=== PATIENT | male | born 1980 | race Caucasian/White ===

== ENCOUNTER 2016-10-11 10:37 | Emergency (ER) | payer MEDICARE, MEDICAID, OTHER ==
[~2016-10-11] VITALS: Ht 170.2 cm; Wt 87.0 kg
[2016-10-11] MEDS ORDERED: HYDR10SY11 PO (11:05)
[2016-10-11] MEDS ORDERED: OLAN5TAB26 PO (11:05)
[2016-10-11] MEDS ORDERED: ZIPR20CA2 PO (11:05)
[2016-10-11] MEDS ORDERED: BENZ0.5T3 PO (11:05)
[2016-10-11 12:49] LABS: BASOPHILS % 0.4 % (0.0-2.0); EOSINOPHILS % 0.1 % (0.0-5.0); HEMATOCRIT. 41.2 % (42.0-52.0); HEMOGLOBIN. 14.5 g/dL (14.0-18.0); LYMPHOCYTES % 13.5 % (20.0-50.0); MEAN CORPUSCULAR HEMOGLOBIN 30.5 pg (28.0-32.0); MEAN CORPUSCULAR HGB CONC 35.1 g/dL (31.0-37.0); MEAN CORPUSCULAR VOLUME 87.1 fL (80.0-94.0); MONOCYTES % 4.2 % (2.0-8.0); NEUTROPHILS % 81.8 % (40.0-76.0); PLATELET 234 x1000/uL (130-400); RED BLOOD CELL COUNT 4.74 mill/uL (4.7-6.1); RED CELL DISTRIBUTION WIDTH 13.9 % (11.6-14.6); WHITE BLOOD COUNT 8.8 x1000/uL (4.5-11.0)
[2016-10-11 12:59] LABS: CHLORIDE 102 mEq/L (98-107); INDEX HEMOLYSI 1 (1-3); INDEX ICTERIC 1 (1-4); INDEX LIPEMIC 1 (1-3)
[2016-10-11 13:06] LABS: ACETAMINOPHEN < 2 ug/mL (10-30); ALANINE AMINOTRANSFERASE 21 IU/L (13-61); ALBUMIN 4.1 g/dL (3.4-5.0); ANION GAP 9; CALCIUM 9.1 mg/dL (8.5-10.1); CARBON DIOXIDE 31 mEq/L (21-32); ETHANOL BLOOD < 10 mg/dL; UREA NITROGEN BLOOD 9 mg/dL (7-21); eGFR > 60 mL/min (>60)
[2016-10-11 14:01] LABS: CLARITY URINE CLEAR (CLEAR); COLOR URINE YELLOW (YELLOW); GLUCOSE URINE NEGATIVE (NEGATIVE); KETONES URINE 1+ (NEGATIVE); LEUKOCYTE ESTERASE URINE NEGATIVE (NEGATIVE); NITRITE URINE NEGATIVE (NEGATIVE); OCCULT BLOOD URINE NEGATIVE (NEGATIVE); PH URINE 7.5 (4.5-8.0); PROTEIN URINE NEGATIVE (NEGATIVE); SPECIFIC GRAVITY URINE 1.012 (1.005-1.030)
[2016-10-11 14:26] LABS: *AMPHETAMINES SCREEN URINE NEGATIVE (NEGATIVE); *BARBITURATES SCREEN URINE NEGATIVE (NEGATIVE); *BENZODIAZEPINES SCREEN URINE NEGATIVE (NEGATIVE); *COCAINE SCREEN URINE NEGATIVE (NEGATIVE); CANNABINOID URINE SCREEN NEGATIVE (NEGATIVE); ECSTASY MDMA SCREEN URINE NEGATIVE (NEGATIVE); METHADONE URINE SCREEN NEGATIVE (NEGATIVE); OPIATES URINE SCREEN NEGATIVE (NEGATIVE); PHENCYCLIDINE URINE SCREEN NEGATIVE (NEGATIVE)
[2016-10-11] MEDS ORDERED: LORAZEPAM 0.5MG TABLET PO ONE (19:15)
[2016-10-12 00:52] VITALS: BP 116/82
== END 2016-10-12 01:49 ==
LOC: ER 11:27
DX: F41.1 Generalized anxiety disorder (principal); R45.851 Suicidal ideations; I10 Essential (primary) hypertension
CPT/HCPCS: 36415; 80053; 80305; 80329; 81003; 85025; 99285; G0482; 80307

== ENCOUNTER 2016-11-01 17:20 | Emergency (ER) | payer MEDICAID, MEDICARE ==
[~2016-11-01] VITALS: Ht 170.2 cm; Wt 80.8 kg
[~2016-11-01 17:20] MED LIST: BENZ0.5T3 PO; HYDR10SY11 PO; OLAN5TAB26 PO; ZIPR20CA2 PO
[2016-11-01] MEDS ORDERED: LORAZEPAM 1MG TABLET PO ONE (19:45)
[2016-11-01 20:26] VITALS: BP 118/78
[2016-11-01] MEDS ORDERED: ZIPRASIDONE MESYLATE 20MG/VIAL IM ONE (21:45)
[2016-11-01 22:34] LABS: BASOPHILS % 0.6 % (0.0-2.0); EOSINOPHILS % 3.1 % (0.0-5.0); HEMATOCRIT. 36.6 % (42.0-52.0); HEMOGLOBIN. 12.8 g/dL (14.0-18.0); LYMPHOCYTES % 38.4 % (20.0-50.0); MEAN CORPUSCULAR HEMOGLOBIN 30.3 pg (28.0-32.0); MEAN CORPUSCULAR HGB CONC 34.9 g/dL (31.0-37.0); MEAN CORPUSCULAR VOLUME 86.7 fL (80.0-94.0); MEAN PLATELET VOLUME 7.4 fl (7.4-10.4); MONOCYTES % 8.5 % (2.0-8.0); NEUTROPHILS % 49.4 % (40.0-76.0); PLATELET 238 x1000/uL (130-400); RED BLOOD CELL COUNT 4.22 mill/uL (4.7-6.1); RED CELL DISTRIBUTION WIDTH 14.3 % (11.6-14.6); WHITE BLOOD COUNT 7.4 x1000/uL (4.5-11.0)
[2016-11-01 22:39] LABS: *AMPHETAMINES SCREEN URINE NEGATIVE (NEGATIVE); *BARBITURATES SCREEN URINE NEGATIVE (NEGATIVE); *BENZODIAZEPINES SCREEN URINE NEGATIVE (NEGATIVE); *COCAINE SCREEN URINE NEGATIVE (NEGATIVE); CANNABINOID URINE SCREEN NEGATIVE (NEGATIVE); ECSTASY MDMA SCREEN URINE NEGATIVE (NEGATIVE); METHADONE URINE SCREEN NEGATIVE (NEGATIVE); OPIATES URINE SCREEN NEGATIVE (NEGATIVE); PHENCYCLIDINE URINE SCREEN NEGATIVE (NEGATIVE)
[2016-11-01 22:44] LABS: CALCIUM 8.8 mg/dL (8.5-10.1); CHLORIDE 103 mEq/L (98-107); INDEX HEMOLYSI 1 (1-3); INDEX ICTERIC 1 (1-4); INDEX LIPEMIC 1 (1-3)
[2016-11-01 22:49] LABS: ACETAMINOPHEN < 2 ug/mL (10-30); ANION GAP 12; CARBON DIOXIDE 29 mEq/L (21-32); ETHANOL BLOOD < 10 mg/dL; UREA NITROGEN BLOOD 10 mg/dL (7-21); eGFR > 60 mL/min (>60)
== END 2016-11-01 23:40 | disposition home or self-care (01) ==
LOC: ER 19:30
DX: F41.9 Anxiety disorder, unspecified (principal); F25.0 Schizoaffective disorder, bipolar type
CPT/HCPCS: 36415; 80048; 80305; 80307; 80329; 85025; 96372; 99284; G0482; J3486

== ENCOUNTER 2016-11-02 21:34 | Emergency (ER) | payer MEDICARE, MEDICAID | END 2016-11-02 23:00 | disposition left against medical advice (07) | LOC: ER 22:45 | DX: Z04.8 Encounter for examination and observation for other specified reasons (principal); Z53.21 Procedure and treatment not carried out due to patient leaving prior to being seen by health care provider ==